=== PATIENT | female | born 1950 | race Caucasian/White ===

== ENCOUNTER → 2017-05-03 | Outpatient (CLI) | payer MEDICARE ==
[2017-05-03 12:15] LABS: Non-African American GFR(MDRD) 55 (>60 ml/min/1.73 sqM)
--- NOTE | 2017-05-03 14:15 | MR ---
EXAMINATION TYPE: MR lumbar spine wo/w con DATE OF EXAM: 05/03/2017 1:57 PM COMPARISON: NONE HISTORY: Low back pain, Hx of breast ca CONTRAST: The patient was injected with 8 mL intravenous Gadavist gadolinium contrast. Multiplanar, MultiSpin echo imaging of the lumbar spine was performed. T12-L1: Mild acute superior endplate compression fracture without underlying pathologic component. 20 % loss of height is estimated. Bony retropulsion is noted at 2.8 mm. There is no evidence for central stenosis or cord contact. Posterior elements are intact. L1-L2: Normal disc appearance without desiccation. No herniation, protrusion or disc bulging. No ca nal stenosis is present. Foramina are patent bilaterally. L2-L3: Normal disc appearance without desiccation. No herniation, protrusion or disc bulging. No ca nal stenosis is present. Foramina are patent bilaterally. L3-L4: Mild disc desiccation noted. Mild posterior disc bulge. No disc herniation or protrusion. No e vidence for central stenosis. L4-L5: Mild disc desiccation. Right paracentral disc protrusion without herniation. Mild right forami nal narrowing and borderline right lateral recess stenosis. L5-S1: Mild to moderate disc desiccation. Posterocentral disc protrusion effaces the ventral thecal s ac. No evidence for central stenosis or lateral recess stenosis. Foramina are patent bilaterally. Lumbar segments are intact. No paraspinal masses are identified. Conus medullaris has a normal appe arance. No pathologic enhancement identified. IMPRESSION: 1. Acute superior endplate compression fracture of T12 without underlying pathologic component identi fied at this time. Minimal bony retropulsion as noted. 2. Degenerative disc disease with disc protrusions at L4-5 and L5-S1. See above.
== END | disposition home or self-care (01) ==
LOC: RADMRIMAIN 12:01
PROVIDERS: ATTEND Physician Assistant
DX: M51.27 Other intervertebral disc displacement, lumbosacral region (principal); M51.37 Other intervertebral disc degeneration, lumbosacral region; M54.5 Low back pain; Z85.3 Personal history of malignant neoplasm of breast
CPT/HCPCS: 82565; 72158; 36415; A9581

== ENCOUNTER 2017-05-16 15:02 | Emergency (ER) | payer OTHER, MEDICARE ==
[2017-05-16 15:33] VITALS: TEMP 98.4
[2017-05-16] MEDS ORDERED: RX INFO: IV CONTRAST WAS GIVEN 1 EACH MISC MISCELLANE PRN (15:45)
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
[2017-05-16 16:50] LABS: CHCM 33.7; HCT 40.6 % (34.0-46.0); HGB 13.3 gm/dL (11.4-16.0); MCH 30.2 pg (25.0-35.0); MCHC 32.8 g/dL (31.0-37.0); MCV 92.2 fL (80.0-100.0); RBC 4.41 m/uL (3.80-5.40); WBC 8.7 k/uL (3.8-10.6); WBC (Perox) 8.92
[2017-05-16 16:51] LABS: CH 30.8; HDW 2.38; Lymphocytes % (A) 21 %; Neutrophils % (A) 66 %
[2017-05-16 16:52] LABS: Basophils # (A) 0.1 k/uL (0-0.2); Basophils % (A) 1 %; Eosinophils # (A) 5.9 k/uL (0-0.7); Eosinophils % (A) 6 %; Luc % (Auto) 1; Lymphocytes # (A) 1.8 k/uL (1.0-4.8); Monocytes # (A) 0.5 k/uL (0-1.0); Monocytes % (A) 5 %; Neutrophils # (A) 5.8 k/uL (1.3-7.7)
[2017-05-16 16:58] LABS: Partial Thromboplastin Time 24.1 sec (22.0-30.0); Prothrombin Time 10.4 sec (9.0-12.0)
[2017-05-16 17:03] LABS: ALT 31 U/L (9-52); AST 29 U/L (14-36); Alcohol <10 mg/dL; Alkaline Phosphatase 144 U/L (38-126); Anion Gap 12 mmol/L; Blood Urea Nitrogen 22 mg/dL (7-17); Calcium 9.4 mg/dL (8.4-10.2); Carbon Dioxide 23 mmol/L (22-30); Chloride 107 mmol/L (98-107); Glucose 179 mg/dL (74-99); Non-African American GFR(MDRD) >60 (>60 ml/min/1.73 sqM); Potassium 4.2 mmol/L (3.5-5.1); Sodium 142 mmol/L (137-145); Total Bilirubin 0.4 mg/dL (0.2-1.3); Total Protein 7.1 g/dL (6.3-8.2)
[2017-05-16 17:13] LABS: Creatine Kinase 83 U/L (30-135)
[2017-05-16 17:24] LABS: Creatine Kinase MB 0.7 ng/mL (0.0-2.4); Troponin I <0.012 ng/mL (0.000-0.034)
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
[2017-05-16 18:43] VITALS: BP 196/92; PULSE 86; RESP 16
== END 2017-05-16 18:42 | disposition home or self-care (01) ==
LOC: EC 15:02
DX: S20.219A Contusion of unspecified front wall of thorax, initial encounter (principal); R10.10 Upper abdominal pain, unspecified; E11.9 Type 2 diabetes mellitus without complications; E78.5 Hyperlipidemia, unspecified; Z79.84 Long term (current) use of oral hypoglycemic drugs; Z79.899 Other long term (current) drug therapy; Z88.8 Allergy status to other drugs, medicaments and biological substances; V49.49XA Driver injured in collision with other motor vehicles in traffic accident, initial encounter; Y92.89 Other specified places as the place of occurrence of the external cause
CPT/HCPCS: 36415; 86900; 86901; 80053; 82550; 82553; 84484; 85025; 85610; 85730; 86850; 80320; 71260; 74177; 99284; Q9967

== ENCOUNTER → 2017-07-13 | Outpatient (CLI) | payer MEDICARE ==
--- NOTE | 2017-07-13 23:14 | MR ---
EXAMINATION TYPE: MR knee RT wo con DATE OF EXAM: 07/13/2017 COMPARISON: NONE HISTORY: Right knee pain and swelling TECHNIQUE: Multiplanar, multisequence imaging of the right knee is performed without IV contrast. FINDINGS: The anterior and posterior cruciate ligaments are intact. Collateral ligaments are intact. There is extensive abnormal increased signal in the medial femoral condyle on the T2 images. There is narrowing of the medial joint space. There is oblique tear of the posterior horn of the medial menis cus extending to the inferior surface. There are some degenerative signal changes within the lateral meniscus without a complete tear. There is mild knee joint effusion. Patella appears intact. I see no fracture line. CONCLUSION: Osteoarthritic narrowing of the medial joint space. Complex tear of the posterior horn of the medial meniscus. Knee joint effusion. Extensive bone bruise in the medial femoral condyle. No evidence of li gamentous tear.
== END | disposition home or self-care (01) ==
LOC: RADMRIMAIN 16:21
PROVIDERS: ATTEND Family Medicine
DX: S83.241A Other tear of medial meniscus, current injury, right knee, initial encounter (principal); M17.11 Unilateral primary osteoarthritis, right knee; S80.01XA Contusion of right knee, initial encounter